=== PATIENT | male | born 1965 | race Caucasian/White ===

== ENCOUNTER → 2021-12-08 | Outpatient (REF) | LOC: M RAD 08:54 | PROVIDERS: ATTEND Physician Assistant Medical | DX: M19.011 Primary osteoarthritis, right shoulder (principal); M51.36 Other intervertebral disc degeneration, lumbar region; M51.37 Other intervertebral disc degeneration, lumbosacral region; M51.87 Other intervertebral disc disorders, lumbosacral region; M25.762 Osteophyte, left knee; M17.12 Unilateral primary osteoarthritis, left knee ==

== ENCOUNTER → 2022-04-22 | Outpatient (CLI) | payer OTHER ==
[~2022-04-22] MED LIST: ALLE180T33 PO; CELE100C PO; IBUP200C28 PO; ROSU40TA4 PO; VITMTA PO
== END ==
LOC: M LABSMTC 11:18
PROVIDERS: ATTEND Anesthesiology
DX: Z01.818 Encounter for other preprocedural examination (principal)

== ENCOUNTER 2022-04-27 09:38 | Day surgery (SDC) | payer OTHER ==
[~2022-04-27] VITALS: Ht 167.6 cm; Wt 101.2 kg
[~2022-04-27 09:38] MED LIST changes: +NS 1,000 ML IV ONE
[2022-04-27] MEDS ORDERED: propofoL 200 MG/20 ML VIAL As Ordered ONE ×2 (10:06→10:39)
[2022-04-27] MEDS ORDERED: LIDOCAINE 2% 100MG/5ML SDV (FOR ANES.) As Ordered ONE (10:06)
[2022-04-27 11:30] VITALS: BP 127/87
== END 2022-04-27 11:45 | disposition home or self-care (01) ==
LOC: M OPP 09:38
PROVIDERS: ATTEND Surgery
DX: Z12.11 Encounter for screening for malignant neoplasm of colon (principal); Z86.010 Personal history of colon polyps; Z80.0 Family history of malignant neoplasm of digestive organs; K64.4 Residual hemorrhoidal skin tags; K22.70 Barrett's esophagus without dysplasia; K29.70 Gastritis, unspecified, without bleeding; K22.89 Other specified disease of esophagus; Z79.02 Long term (current) use of antithrombotics/antiplatelets; Z79.1 Long term (current) use of non-steroidal anti-inflammatories (NSAID); Z79.51 Long term (current) use of inhaled steroids; Z79.82 Long term (current) use of aspirin; Z79.891 Long term (current) use of opiate analgesic; Z79.899 Other long term (current) drug therapy; G47.33 Obstructive sleep apnea (adult) (pediatric); Z99.89 Dependence on other enabling machines and devices; E78.00 Pure hypercholesterolemia, unspecified

== ENCOUNTER 2023-02-22 16:35 | Emergency (ER) | payer OTHER ==
[~2023-02-22] VITALS: Ht 167.6 cm; Wt 104.0 kg
[~2023-02-22 16:35] MED LIST changes: -NS 1,000 ML IV ONE
[2023-02-22 16:36] VITALS: BP 167/73; TEMP 97.5; O2SAT 99
== END 2023-02-22 17:29 | disposition left against medical advice (07) ==
LOC: M ED 16:35
DX: Z53.21 Procedure and treatment not carried out due to patient leaving prior to being seen by health care provider (principal)

== ENCOUNTER 2023-06-27 04:36 | Emergency (ER) | payer OTHER ==
[~2023-06-27] VITALS: Ht 167.6 cm; Wt 91.7 kg
[2023-06-27 05:47] LABS: EOS % 3.6 % (0.0-3.0); HEMATOCRIT 40.4 % (42.0-52.0); HEMOGLOBIN 13.9 g/dl (13.5-17.5); MEAN CORPUSCULAR HEMOGLOBIN 30.6 pg (27.0-33.0); MEAN CORPUSCULAR HGB CONC 34.4 g/dl (32.0-36.5); MONO % 6.4 % (2.0-8.0); NEUTROPHILS % 58.4 % (36.0-66.0); PLATELET COUNT, AUTOMATED 260 10^3/uL (150-450); RED BLOOD COUNT 4.54 10^6/uL (4.30-6.10); WHITE BLOOD COUNT 9.8 10^3/uL (4.0-10.0)
[2023-06-27 05:48] LABS: BASO % 0.4 % (0.0-1.0); EOS # 0.4 10^3/uL (0.0-0.5); LYMPH # 3.1 10^3/uL (1.5-5.0); MONO # 0.6 10^3/uL (0.0-0.8); NEUTROPHILS # 5.8 10^3/uL (1.5-8.5)
[2023-06-27 06:14] LABS: BLOOD UREA NITROGEN 23 MG/DL (9-23); CALCIUM LEVEL 9.8 MG/DL (8.5-10.1); CARBON DIOXIDE LEVEL 28 MMOL/L (20-31); CHLORIDE LEVEL 101 MMOL/L (98-107); CK-MB VALUE MASS 1.5 NG/ML (<3.6); CPK CREATINE PHOSPHOKINASE 98 U/L (46-171); CREATININE FOR GFR 1.08 MG/DL (0.70-1.30); GLOMERULAR FILTRATION RATE > 60.0 (>56); GLUCOSE, FASTING 103 MG/DL (60-100); MB/CK RELATIVE INDEX 1.53 (< OR =4); SODIUM LEVEL 136 MMOL/L (136-145)
[2023-06-27 06:37] LABS: FREE T4 1.07 NG/DL (0.89-1.76)
[2023-06-27 06:38] LABS: ERYTHROCYTE SEDIMENTATION RATE 33 mm/hr (0-20)
[2023-06-27 06:55] LABS: CK-MB VALUE MASS 1.5 NG/ML (<3.6)
[2023-06-27 07:00] LABS: MB/CK RELATIVE INDEX 1.57 (< OR =4)
[2023-06-27 11:33] VITALS: BP 134/83; TEMP 98; O2SAT 96
== END 2023-06-27 11:44 | disposition home or self-care (01) ==
LOC: M ED 04:36
DX: H53.2 Diplopia (principal); I44.4 Left anterior fascicular block; Z87.820 Personal history of traumatic brain injury